=== PATIENT | female | born 1950 | race Caucasian/White ===

== ENCOUNTER 2020-12-01 18:50 | Emergency (ER) | payer OTHER ==
[~2020-12-01] VITALS: Ht 160 cm; Wt 77.6 kg
--- NOTE | 2020-12-01 19:25 | NUR ---
Patient to ER bed 7 to gown for evaluation. Side rails up.
[2020-12-01 19:30] VITALS: BP_SYST 156
--- NOTE | 2020-12-01 19:41 | NUR ---
Pt BIB family to ED C/O Abd Midline pain running straight down the middle; this happened earlier today during a PT session, pt also states same thing happened almost exactly 1 year ago. Has Hx of IBS, GERD, HTN, and DM2 on insulin No other complaints noted VSS no s/s of acute distress
--- NOTE | 2020-12-01 20:55 | NUR ---
Dr. Barker bedside for pt eval
--- NOTE | 2020-12-01 21:23 | NUR ---
Pt taken to Radiology in stable condition
[2020-12-01 21:28] LABS: ANION GAP 7 (5-15); CHLORIDE 103 mmol/L (98-107); CREATININE 0.85 mg/dL (0.55-1.30); GLUCOSE 97 mg/dL (70-99); POTASSIUM 3.6 mmol/L (3.5-5.1); SODIUM SERUM 139 mmol/L (136-145); UREA NITROGEN, BLOOD 16 mg/dL (8-21)
[2020-12-01 21:33] LABS: ALANINE AMINOTRANSFERASE 29 U/L (12-78); ALBUMIN 4.1 g/dL (3.4-4.8); ASPARTATE AMINOTRANSFERASE 27 U/L (10-37); BASOPHILS # (AUTO) 0.1 K/uL (0.0-0.2); BASOPHILS % (AUTO) 1.6 % (0.0-2.0); EOSINOPHILS # (AUTO) 0.2 K/uL (0.0-0.4); EOSINOPHILS % (AUTO) 2.4 % (0.0-4.0); HEMATOCRIT 45.7 % (36-48); HEMOGLOBIN 15.7 g/dL (12.0-16.0); LIPASE 183 U/L (73-393); LYMPHOCYTES # (AUTO) 1.6 K/uL (1.0-5.5); LYMPHOCYTES % (AUTO) 20.4 % (20.5-51.5); MEAN CORPUSCULAR HEMOGLOBIN 30 pg (27-31); MEAN CORPUSCULAR HGB CONC 35 % (32-36); MEAN CORPUSCULAR VOLUME 86 fL (79.0-98.0); MONOCYTES # (AUTO) 0.4 K/uL (0.0-1.0); MONOCYTES % (AUTO) 4.7 % (1.7-9.3); NEUTROPHILS # (AUTO) 5.4 K/uL (1.8-7.7); NEUTROPHILS % (AUTO) 70.9 % (40.0-70.0); PLATELET COUNT (AUTO) 202 K/uL (130-430); RED CELL DISTRIBUTION WIDTH 13.6 % (9.0-15.0); TOTAL BILIRUBIN 0.6 mg/dL (0.0-1.0); WHITE BLOOD COUNT (AUTO) 7.6 K/uL (4.8-10.8)
--- NOTE | 2020-12-01 21:36 | NUR ---
Pt back from CT Scan, well tolerated
--- NOTE | 2020-12-01 22:39 | NUR ---
Dr. Barker bedside for pt update
--- NOTE | 2020-12-01 22:40 | NUR ---
Pt states " feeling a bit better "
[2020-12-01 22:53] VITALS: BP_SYST 156
--- NOTE | 2020-12-01 22:53 | NUR ---
Patient given written and verbal discharge instructions and verbalizes understanding. ER MD discussed with patient the results and treatment provided. Patient in stable condition. ID arm band removed. IV catheter removed intact and dressing applied, no active bleeding. Patient educated on pain management and to follow up with PMD. Pain Scale 0/10 Opportunity for questions provided and answered.
== END 2020-12-01 22:53 | disposition home or self-care (01) ==
LOC: SED 18:50
DX: G89.29 Other chronic pain (principal); R10.33 Periumbilical pain; I10 Essential (primary) hypertension
CPT/HCPCS: 36415; 76376; 80053; 82962; 83690; 85025; 93005; 99285

== ENCOUNTER 2021-03-06 14:42 | Emergency (ER) | payer OTHER, SELFPAY ==
[~2021-03-06] VITALS: Ht 160 cm; Wt 77.1 kg
[2021-03-06 14:45] VITALS: BP_SYST 136
--- NOTE | 2021-03-06 14:45 | NUR ---
Patient to ER bed TENT 1 to gown for evaluation. Side rails up.
--- NOTE | 2021-03-06 14:50 | NUR ---
ER DR. SINGER EXAMINING PT
[2021-03-06] MEDS ORDERED: PRED20TA PO (14:59)
[2021-03-06] MEDS ORDERED: ALBU2.5V7 INH (14:59)
[2021-03-06] MEDS ORDERED: GUAI5SYR PO (14:59)
--- NOTE | 2021-03-06 15:03 | NUR ---
PT CAME IN FROM HOME STATES SHE TEST + FOR COVID 02/24/21, SINCE SHE HAS HAD A COUGH. RECENTLY SHE HAS BEEN LOSING SLEEP DUE TO COUGH AND OTC COUGH MEDICIINE NOT WORKING. PT ALSO REPORTS USING AT HOME NEBULIZER TX'S FOR HX OF ASTHMA. PT IS AMBULATORY, AAOX4, VSS
[2021-03-06 15:14] VITALS: BP_SYST 136
--- NOTE | 2021-03-06 15:14 | NUR ---
Patient given written and verbal discharge instructions and verbalizes understanding. ER MD discussed with patient the results and treatment provided. Patient in stable condition. ID arm band removed. Rx of ALBUTEROL, ROBITUSSIN AND PREDNISONE given. Patient educated on pain management and to follow up with PMD. Pain Scale 0/10. Opportunity for questions provided and answered. Medication side effect fact sheet provided.
== END 2021-03-06 15:14 | disposition home or self-care (01) ==
LOC: SED 14:42
DX: U07.1 COVID-19 (principal); J45.901 Unspecified asthma with (acute) exacerbation; I10 Essential (primary) hypertension; E11.9 Type 2 diabetes mellitus without complications; Z88.0 Allergy status to penicillin; Z79.899 Other long term (current) drug therapy
CPT/HCPCS: 99283